=== PATIENT | female | born 1950 | race Caucasian/White ===

== ENCOUNTER 2017-04-02 10:59 | Day surgery (SDC) | payer MEDICARE, MEDICAID ==
[2017-03-30 15:52] VITALS: BMI 28.0
[2017-04-02] MEDS ORDERED: Propofol 200 MG/20 ML VIAL ONE (13:47)
--- NOTE | 2017-04-02 14:16 | OP ---
PREOPERATIVE DIAGNOSIS: Abnormal modified barium swallow. DESCRIPTION OF THE PROCEDURE: After informed consent was obtained, the patient was placed in the le ft lateral decubitus position. Anesthesia administered per the Anesthesia Department. Forward endo scope was inserted into esophagus under direct visualization with ease and passed to the second port ion of the duodenum with ease. Second portion of the duodenum and duodenal bulb were normal. The p ylorus, antrum, body, fundus, and cardia were normal. Retroflexion in the stomach was normal. The GE junction was normal. The esophagus was normal. No abnormalities were noted. ASSESSMENT: Normal esophagogastroduodenoscopy. RECOMMENDATIONS: 1. Soft diet. 2. Encourage fluids after each swallow. 3. Return to me if more problems with swallowing.
== END 2017-04-02 15:10 | disposition home or self-care (01) ==
LOC: SDC 10:59
PROVIDERS: ATTEND Internal Medicine Gastroenterology
PROC: 0DJ08ZZ Inspection of Upper Intestinal Tract, Via Natural or Artificial Opening Endoscopic (ICD-10-PCS; principal; 2017-04-02)
DX: R93.3 Abnormal findings on diagnostic imaging of other parts of digestive tract (principal); Z88.7 Allergy status to serum and vaccine; Z88.0 Allergy status to penicillin; Z88.2 Allergy status to sulfonamides; Z88.1 Allergy status to other antibiotic agents; Z88.8 Allergy status to other drugs, medicaments and biological substances; Z98.51 Tubal ligation status; Z96.651 Presence of right artificial knee joint; Z96.698 Presence of other orthopedic joint implants; Z98.890 Other specified postprocedural states
CPT/HCPCS: J2704

== ENCOUNTER 2017-08-30 12:48 | Outpatient (CLI) | payer MEDICARE, MEDICAID ==
--- NOTE | 2017-08-30 15:36 | ULT ---
PELVIC ULTRASOUND: HISTORY: Pelvic bleeding. Postmenopausal bleeding. COMPARISON: None. TECHNIQUE: Transabdominal endovaginal imaging of the pelvis is performed. FINDINGS: Uterus is identified measuring 6.3 x 3.5 x 3.9 cm. There is fluid in the endometrium. Endometrial d iameter is 0.3 cm. There are areas of calcification within the uterus. There is a 1.9 x 1.2 x 1.4 c m heterogeneous focus in the uterine fundus. Neither ovary is appreciated. No obvious adnexal masses. There is free fluid in the cul-de-sac. Nabothian cyst measuring 1 cm is noted. IMPRESSION: Heterogeneous uterine myometrium with areas of calcification and a soft tissue echotexture mass in th e uterine fundus. There is also fluid in the endometrial canal. Given the history of postmenopausal bleeding and the aforementioned sonographic findings, pelvic MRI is recommended along with a [employer] con sultation. CODE T POS: LOULOU
== END 2017-08-30 12:49 | disposition home or self-care (01) ==
LOC: ULT 12:48
PROVIDERS: ATTEND Student in an Organized Health Care Education/Training Program
DX: N95.0 Postmenopausal bleeding (principal); N85.8 Other specified noninflammatory disorders of uterus
CPT/HCPCS: 76856

== ENCOUNTER 2018-02-13 15:59 | Emergency (ER) | payer MEDICARE, MEDICAID ==
[2018-02-13] MEDS ORDERED: Sodium Bicarb 50 MEQ/50 ML Abboject 8.4% SYRINGE ONE (17:43)
[2018-02-13] MEDS ORDERED: Calcium Chloride 1 GM/10 ML Abboject SYRINGE ONE (17:43)
[2018-02-13] MEDS ORDERED: EPINEPHrine 1 MG/10 ML Abboject SYRINGE ONE (17:43)
== END 2018-02-13 19:24 | disposition expired ==
LOC: ERS 15:59
DX: I46.9 Cardiac arrest, cause unspecified (principal); K21.9 Gastro-esophageal reflux disease without esophagitis; K58.9 Irritable bowel syndrome, unspecified; E11.9 Type 2 diabetes mellitus without complications; I10 Essential (primary) hypertension; J45.909 Unspecified asthma, uncomplicated; F32.9 Major depressive disorder, single episode, unspecified; E78.5 Hyperlipidemia, unspecified; Z86.73 Personal history of transient ischemic attack (TIA), and cerebral infarction without residual deficits; Z79.899 Other long term (current) drug therapy; Z79.82 Long term (current) use of aspirin; Z79.891 Long term (current) use of opiate analgesic
CPT/HCPCS: 99285; J0171